=== PATIENT | male | born 1955 | race Caucasian/White ===

== ENCOUNTER → 2021-02-14 | Outpatient (REF) | payer OTHER | LOC: M LAB REF 17:35 | PROVIDERS: ATTEND Dermatology | DX: C44.619 Basal cell carcinoma of skin of left upper limb, including shoulder (principal) ==

== ENCOUNTER → 2021-07-04 | Outpatient (REF) | payer OTHER | LOC: M SFHCDERM 14:18 | PROVIDERS: ATTEND Physician Assistant | DX: C44.719 Basal cell carcinoma of skin of left lower limb, including hip (principal); L57.0 Actinic keratosis ==

== ENCOUNTER → 2022-07-23 | Outpatient (REF) | payer MEDICARE, OTHER | LOC: M SFHCDERM 14:11 | PROVIDERS: ATTEND Physician Assistant | DX: C44.612 Basal cell carcinoma of skin of right upper limb, including shoulder (principal); L57.0 Actinic keratosis ==

== ENCOUNTER → 2025-01-06 | Outpatient (REF) | payer MEDICARE, OTHER | LOC: M SFHCDERM 18:04 | PROVIDERS: ATTEND Physician Assistant | DX: C44.529 Squamous cell carcinoma of skin of other part of trunk (principal) ==

== ENCOUNTER → 2025-01-26 | Outpatient (REF) | payer MEDICARE, OTHER | LOC: M SFHCDERM 17:39 | PROVIDERS: ATTEND Physician Assistant | DX: L82.0 Inflamed seborrheic keratosis (principal) ==